=== PATIENT | male | born 1965 | race African-American/Black ===

== ENCOUNTER 2024-07-08 18:00 | Emergency (ER) | payer OTHER ==
[2024-07-08 19:07] VITALS: BMI 29.9
[2024-07-08] MEDS ORDERED: KETOROLAC TROMETHAMINE 15 MG/ML VIAL ONE (19:44)
[2024-07-08] MEDS: KETOROLAC TROMETHAMINE 15 MG/ML VIAL IVPUSH ONE (19:48)
[2024-07-08] MEDS: KETOROLAC TROMETHAMINE 30 MG/1 ML VIAL IM ONE (19:48)
[2024-07-08 21:23] LABS: BASO % 0.7 % (0-2.0); EOS % 1.7 % (0-4.5); HEMATOCRIT 22.5 % (35.4-49); HEMOGLOBIN 7.3 GM/dL (11.7-16.9); LYMPH % 26.5 % (8-40); MCH 25.6 pg (25.7-33.7); MCHC 32.5 g/dl (32.0-35.9); MEAN PLT VOLUME 6.8 fl (7.5-11.1); NEUT % 59.1 % (42.8-82.8); PLATELET COUNT 548 10^3/uL (134-434); RBC 2.84 M/mm3 (4.00-5.60); RDW 21.1 % (11.9-15.9); WHITE BLOOD COUNT 9.2 K/mm3 (4.0-10.0)
[2024-07-08 22:07] LABS: ANISOCYTOSIS 2+; MACROCYTOSIS 2+; TARGET CELLS 2+
[2024-07-08 22:55] LABS: POTASSIUM 4.6 mmol/L (3.5-5.1)
[2024-07-08 22:56] LABS: ALBUMIN 3.3 g/dl (3.4-5.0)
[2024-07-08 23:00] LABS: CREATININE 0.9 mg/dL (0.55-1.3)
[2024-07-08 23:01] LABS: BILIRUBIN,TOTAL 0.7 mg/dL (0.2-1)
[2024-07-09 03:43] VITALS: RESP 19; TEMP 98.2
[2024-07-09 04:11] VITALS: BP 121/54; PULSE 62
[2024-07-09] MEDS ORDERED: KETOROLAC TROMETHAMINE 15 MG/ML VIAL ONE (05:30)
[2024-07-09] MEDS: KETOROLAC TROMETHAMINE 15 MG/ML VIAL IM ONE (05:36)
== END 2024-07-09 05:53 | disposition home or self-care (01) ==
LOC: JER 18:00
PROC: 3E0233Z Introduction of Anti-inflammatory into Muscle, Percutaneous Approach (ICD-10-PCS; principal; 2024-07-08)
PROC: 3E0233Z Introduction of Anti-inflammatory into Muscle, Percutaneous Approach (ICD-10-PCS; 2024-07-09)
DX: D57.1 Sickle-cell disease without crisis (principal); M25.551 Pain in right hip; M25.511 Pain in right shoulder
CPT/HCPCS: 36415; 71045-TC-FY; 73030-TC-RT-FY; 73502-TC-RT-FY; 80053; 83615; 85025; 85045; 99284-25

== ENCOUNTER 2024-08-06 06:02 | Emergency (ER) | payer OTHER ==
[2024-08-06 06:19] VITALS: BMI 31.1
[2024-08-06 07:02] LABS: HEMATOCRIT 26.4 % (35.4-49); HEMOGLOBIN 8.6 GM/dL (11.7-16.9); MCH 25.8 pg (25.7-33.7); MCHC 32.7 g/dl (32.0-35.9); MEAN PLT VOLUME 7.4 fl (7.5-11.1); PLATELET COUNT 511 10^3/uL (134-434); RBC 3.34 M/mm3 (4.00-5.60); RDW 21.7 % (11.9-15.9); WHITE BLOOD COUNT 8.6 K/mm3 (4.0-10.0)
[2024-08-06 07:21] LABS: POTASSIUM 5.5 mmol/L (3.5-5.1)
[2024-08-06 07:23] LABS: ALBUMIN 3.6 g/dl (3.4-5.0); BLOOD UREA NITROGEN 19.6 mg/dL (7-18); CALCIUM 8.9 mg/dL (8.5-10.1); MAGNESIUM 2.3 mg/dL (1.8-2.4)
[2024-08-06] MEDS ORDERED: KETOROLAC TROMETHAMINE 15 MG/ML VIAL ONE ×2 (07:26→08:36)
[2024-08-06 07:28] LABS: BILIRUBIN,TOTAL 0.7 mg/dL (0.2-1); TOT PROT 8.8 g/dl (6.4-8.2)
[2024-08-06] MEDS: KETOROLAC TROMETHAMINE 15 MG/ML VIAL IVPUSH ONE ×3 (07:33→09:47)
[2024-08-06 09:13] LABS: ANISOCYTOSIS 1+; MACROCYTOSIS 1+; TARGET CELLS 2+
[2024-08-06] MEDS: KETOROLAC TROMETHAMINE 30 MG/1 ML VIAL IM ONE (09:28)
[2024-08-06 10:36] VITALS: RESP 20
[2024-08-06 14:50] VITALS: BP 131/69; PULSE 58; TEMP 98.5
== END 2024-08-06 17:01 | disposition home or self-care (01) ==
LOC: JER 06:02
PROC: 3E0333Z Introduction of Anti-inflammatory into Peripheral Vein, Percutaneous Approach (ICD-10-PCS; principal; 2024-08-06)
PROC: 3E0333Z Introduction of Anti-inflammatory into Peripheral Vein, Percutaneous Approach (ICD-10-PCS; 2024-08-06)
DX: M87.051 Idiopathic aseptic necrosis of right femur (principal); M54.50 Low back pain, unspecified; E87.6 Hypokalemia; D57.219 Sickle-cell/Hb-C disease with crisis, unspecified
CPT/HCPCS: 36415; 73502-TC-RT-FY; 80053; 83010; 83735; 85025; 85045; 99284-25